=== PATIENT | male | born 1975 | race Caucasian/White ===

== ENCOUNTER 2023-08-17 09:06 | Day surgery (SDC) | payer OTHER, SELFPAY ==
--- NOTE | 2023-08-16 09:52 | P.CONAN_ITS ---
Documented by User: Jeri Jackson NP 08/16/23 10:01 HPI - Anesthesia Eval Consult details Narrative: 47yo M for Colonoscopy Follows [employer] cardiology for VSD and bicuspid aortic valve. Per t/c with patient 08/16/23, no cardiac symptoms. VSD very small, no surgical repair. Aortic valve is working normally without stenosis. No cardiac info provided by surgeon's office. Fax request to [facility] 08/16/23. [facility] Past Medical History Medical History (Updated 08/16/23 @ 06:51 by Freda Klein RN) Hx of ventricular septal defect Hx of bicuspid aortic valve Hx of cataract Hx of thyroid cancer History of hypothyroidism Social History Social History Patient Tobacco Use Status: Never used Tobacco Use of substances other than those prescribed or required for medical reasons: No Are you DNR?: No Advance Directives: No Advance Directives Information Provided: Yes Meds Allergies Allergy/AdvReac Type Severity Reaction Status Date / Time walnut Allergy Severe RASH Verified 08/17/23 09:21 CHOCOLATE Allergy Severe RASH Uncoded 08/17/23 09:21 Home Medications Medication Instructions Recorded Confirmed Last Taken Type calcitriol 0.25 mcg capsule PO 08/13/23 Unknown History levothyroxine 150 mcg tablet 150 mcg PO DAILY 08/13/23 Unknown History naproxen 500 mg tablet 500 mg PO BID 08/13/23 Unknown History sumatriptan succinate 50 mg tablet PO 08/13/23 Unknown History Vit C(ascorb.calcium)(mv-mins) 08/16/23 Unknown History ashwagandha extract 08/16/23 Unknown History cholecalciferol (vitamin D3) 10 08/16/23 Unknown History mcg (400 unit) capsule (Vitamin D3) ginseng 100 mg capsule mg 08/16/23 08/16/23 Unknown History melatonin 1 mg tablet mg 08/16/23 Unknown History Assessment and Plan Assessment Anesthesia Assessment: Chart Reviewed Documented by User: Ej Osei MD 08/17/23 09:51 [facility] Past Medical History Medical History (Updated 08/16/23 @ 06:51 by Freda Klein RN) Hx of ventricular septal defect Hx of bicuspid aortic valve Hx of cataract Hx of thyroid cancer History of hypothyroidism Family History Family history of problems with anesthesia: No Surgical History History of Problems with Anesthesia: No Social History Social History Patient Tobacco Use Status: Never used Tobacco Use of substances other than those prescribed or required for medical reasons: No Are you DNR?: No Advance Directives: No Advance Directives Information Provided: Yes Meds Allergies Allergy/AdvReac Type Severity Reaction Status Date / Time walnut Allergy Severe RASH Verified 08/17/23 09:21 CHOCOLATE Allergy Severe RASH Uncoded 08/17/23 09:21 Home Medications Medication Instructions Recorded Confirmed Last Taken Type calcitriol 0.25 mcg capsule PO 08/13/23 Unknown History levothyroxine 150 mcg tablet 150 mcg PO DAILY 08/13/23 Unknown History naproxen 500 mg tablet 500 mg PO BID 08/13/23 Unknown History sumatriptan succinate 50 mg tablet PO 08/13/23 Unknown History Vit C(ascorb.calcium)(mv-mins) 08/16/23 Unknown History ashwagandha extract 08/16/23 Unknown History cholecalciferol (vitamin D3) 10 08/16/23 Unknown History mcg (400 unit) capsule (Vitamin D3) ginseng 100 mg capsule mg 08/16/23 08/16/23 Unknown History melatonin 1 mg tablet mg 08/16/23 Unknown History Exam Narrative Narrative: h/lo right TMJ sx. Airway Mallampati Class: I TM Dist: >3cm Neck ROM: Full Heart: ok. bicuspid AV. tiny VSD. (no abx proph needed per Dr. Garay.) Lungs: ok Assessment and Plan Assessment Anesthesia Assessment: Anesthesia Plan Discussed Final Anesthetic Review Family History of Problems with Anesthesia: No History of Problems with Anesthesia: No NPO: Yes ASA Class: II Final Preanesthetic Review: No Changes in Pt Med Stat, Meds/Allgs Chart Reviewed, Consent Obtained/Reviewed and Anes Risks/Benef Reviewed Patient Risk: Low Procedure Risk: Low Anesthetic Plan Anesthetic Plan: MAC: and Agree w/ Assess. and Plan Disposition: Standard PACU
[2023-08-17 09:10] VITALS: BMI 21.0
[2023-08-17 09:32] VITALS: BP 110/75; PULSE 71; RESP 16; TEMP 36.3; O2SAT 98
[2023-08-17] MEDS: Lactated Ringers 1,000 ML 100 ML IVCONT (09:33)
--- NOTE | 2023-08-17 09:37 | P.HPSUR_ITS ---
Pre-Procedural Eval Section A Date of Service: 08/17/23 Section B Chief Complaint: Other specified symptoms and signs involving the Details of Present Illness: see H&P no changes Relevant Family History (Specify if Yes): No Relevant Social History: None Present Medications: see Short Stay Collaborative assessment Medical History: No relevant PMH History of Previous Operations: No relevant previous surgery Allergies: Allergies Allergy/AdvReac Type Severity Reaction Status Date / Time walnut Allergy Severe RASH Verified 08/17/23 09:21 CHOCOLATE Allergy Severe RASH Uncoded 08/17/23 09:21 Review of Systems Sugical H&P ROS: Negative: Constitution, Cardiovascular, Respiratory, Neurological, Psychiatric, Hem-Onc, Allergic/Immunologic, Gastrointestinal, Genitourinary, Musculoskeletal, Integumentary, Endocrine and Eyes/Ears/Nose/Thr oat Exam Surgical H&P Exam: Normal: HEENT, Normal: Heart, Normal: Lungs, Normal: Extremities, Normal: Abdomen, Normal: Skin and Normal: Neurological Plan Diagnosis/Plan: Unchanged I have reviewed the history and physical and performed a pertinent physical examination on my patient. No changes have occurred unless specified. Time Spent With Patient Time: Total time managing care of this patient today ____ minutes.
[2023-08-17 10:14] VITALS: BP 102/65; PULSE 72; RESP 18; TEMP 36.1; O2SAT 95
[2023-08-17] MEDS: Acetaminophen 325 MG TABLET 650 MG PO (10:25)
[2023-08-17 10:29] VITALS: BP 113/54; PULSE 65; RESP 16; TEMP 36.1; O2SAT 96
--- NOTE | 2023-08-17 10:33 | OP_ITS ---
DATE OF SERVICE: 08/17/2023 SURGEON: Adam Garay MD INDICATIONS: Change in bowel movements. PREOPERATIVE DIAGNOSIS: POSTOPERATIVE DIAGNOSIS: PROCEDURE PERFORMED: Colonoscopy to the terminal ileum with biopsy. ESTIMATED BLOOD LOSS: COMPLICATIONS: ANESTHESIA: Monitored anesthesia care. ASSISTANTS: SPECIMENS: DESCRIPTION OF PROCEDURE: A history and physical performed, the risks and benefits of the procedure were explained to the patient. Informed consent was obtained. The patient was placed in the left lateral decubitus position. A digital rectal exam was performed and was found to be normal. The Olympus pediatric colonoscope was introduced into the rectum and advanced to the cecum. The cecum was identified by transillumination, palpation, and identification of ileocecal valve. Examination was performed. The scope was removed. He tolerated the procedure well and was returned to recovery in stable condition. FINDINGS: The terminal ileum was examined and appeared normal. Biopsies were obtained from the terminal ileum. The visualized colonic mucosa was normal. The quality of the prep was good. There was no evidence of colitis or pathology involving the rectum, except for moderate-sized internal hemorrhoids, which were seen on retroflexed examination. A single shallow diverticulum was identified in the right colon. No polyps were seen. Biopsies were obtained from the rectosigmoid. IMPRESSION: Normal colonoscopy. RECOMMENDATIONS: 1. Follow up the biopsy results. 2. Colonoscopy for screening purposes recommended in 10 years for average risk individuals. MD NYLA Gilliland/SANJAY / [phone]
== END 2023-08-17 11:14 | disposition home or self-care (01) ==
PROVIDERS: PCP Physician Assistant; Visit Provider Internal Medicine Gastroenterology
PROC: 0DJD8ZZ Inspection of Lower Intestinal Tract, Via Natural or Artificial Opening Endoscopic (ICD-10-PCS; CPT 45378; principal; 2023-08-17 10:50)
DX: R19.4 Change in bowel habit (principal); Z83.79 Family history of other diseases of the digestive system; Z83.719 Family history of colon polyps, unspecified; K57.30 Diverticulosis of large intestine without perforation or abscess without bleeding; K64.8 Other hemorrhoids; R14.0 Abdominal distension (gaseous); Z85.850 Personal history of malignant neoplasm of thyroid; Z87.74 Personal history of (corrected) congenital malformations of heart and circulatory system; Z79.899 Other long term (current) drug therapy
CPT/HCPCS: 45380; 88305; J2704

== ENCOUNTER 2023-10-19 16:22 | Emergency (ER) | payer OTHER, SELFPAY ==
[2023-10-19 16:31] VITALS: BP 150/95; PULSE 64; RESP 18; TEMP 36.4; O2SAT 98; BMI 21.2
--- NOTE | 2023-10-19 16:32 | ED.WOUNDLAC ---
HPI - Wound/Laceration General Chief Complaint: Wound/Laceration Stated Complaint: left index finger/stitches Time Seen by Provider: 10/19/23 17:07 Source: patient Mode of arrival: ambulatory Limitations: no limitations History of Present Illness HPI narrative: Patient is a 48-year-old [id number] male presenting to the emergency department with complaint of laceration to left index finger. States that he accidentally cut himself with a clean kitchen knife at home. Reports that his Tdap is up-to-date within the last 5 years. Denies any numbness or tingling. States that the laceration bled for approximately 1 hour which is what brought him to the emergency department. He has not anticoagulated. Denies any decreased range of motion to finger. Onset (ago): hour(s) Extremity Location: left: hand Place: home Patient tetanus UTD: Yes Context: accidental Associated symptoms: none Treatments prior to arrival: bandage Related Data Home Medications Medication Instructions Recorded Confirmed calcitriol 0.25 mcg capsule PO 08/13/23 levothyroxine 150 mcg tablet 150 mcg PO DAILY 08/13/23 naproxen 500 mg tablet 500 mg PO BID 08/13/23 sumatriptan succinate 50 mg tablet PO 08/13/23 Vit C(ascorb.calcium)(mv-mins) 08/16/23 ashwagandha extract 08/16/23 cholecalciferol (vitamin D3) 10 08/16/23 mcg (400 unit) capsule (Vitamin D3) ginseng 100 mg capsule mg 08/16/23 08/16/23 melatonin 1 mg tablet mg 08/16/23 Previous Rx's Medication Instructions Recorded cephalexin 500 mg capsule 500 mg PO QID 5 days #20 caps 10/19/23 Allergies Allergy/AdvReac Type Severity Reaction Status Date / Time walnut Allergy Severe RASH Verified 10/19/23 16:33 CHOCOLATE Allergy Severe RASH Uncoded 08/17/23 09:21 Review of Systems Review of Systems: As per HPI. Yes all other systems are reviewed and are negative Constitutional: Constitutional: Reports as per HPI [facility] Past Medical History Medical History (Updated 10/19/23 @ 17:15 by Carol Jamison NP) Hx of ventricular septal defect Hx of bicuspid aortic valve Hx of cataract Hx of thyroid cancer History of hypothyroidism Social History Social History Patient Tobacco Use Status: Never used Tobacco Smoked in Last 30 Days: No Use of substances other than those prescribed or required for medical reasons: No Advance Directives: No Advance Directives Information Provided: No Physical Exam Vital Signs: Vital Signs: Last Vital Signs Temp 97.6 F 10/19/23 16:31 Pulse 64 10/19/23 16:31 Resp 18 10/19/23 16:31 BP 150/95 H 10/19/23 16:31 Pulse Ox 98 10/19/23 16:31 O2 Del Method Room Air 10/19/23 16:31 BMI result Body Mass Index 21.2 Vital signs have been reviewed and appear to be correct. Blood pressure elevated. Heart rate normal. Respiratory rate normal. Temperature normal. Oxygen saturation normal. Const: General: cooperative, healthy appearing and no acute distress Orientation/consciousness: oriented to person, oriented to place, oriented to time and patient oriented x3 Limitations: no limitations HEENT: Head: Yes normocephalic and Yes atraumatic Ears: external ears normal General nose exam: Normal external nose present Face and sinus: Yes face symmetric Mouth: oropharynx normal and moist mucous membranes Throat: Yes uvula midline Eyes: Pupils: Equal, round and reactive pupils present Neck: Neck: Yes normal visual inspection and Yes supple Resp: Effort & Inspection: normal respiratory effort and able to speak in complete sentences Auscultation: clear to auscultation bilaterally Cardio: Rate: regular rate Rhythm: regular rhythm Heart sounds: S1 normal heart sound present and S2 normal heart sound present GI: Palpation (GI): Soft to palpation and nontender Auscultation: normoactive bowel sounds : General: Yes no CVA tenderness Back/Spine/Pelvis: Back: no CVA tenderness Skin: General skin exam: elasticity normal and turgor normal Neuro: General: oriented to person, oriented to place, oriented to time, patient oriented x3, moves all extremities, no focal motor deficits and CN's II-XI intact bilaterally Cranial nerves: Yes Equal, round and reactive pupils present Cognition (Neuro): normal cognition Extrem: General: Yes full ROM, Yes no pedal edema and Yes no calf tenderness Left upper extremity: hand Details: normal capillary refill, neuromotor exam normal, neurosensory exam normal, normal ROM of fingers and laceration 2nd digit dorsal aspect proximal Details: linear (5mm, over PIP joint) Hand/finger images: 1. 5mm linear superficial laceration, no active bleeding Psych: Mental Status: mental status grossly normal Affect: normal affect Thought process: Normal thought process present Course Course Course Narrative: This is an RME: Additional HPI, ROS, PE not included below will be deferred to primary provider. This is a 48-year-old male presenting to the emergency department for evaluation of left 2nd finger laceration. He accidentally lacerated his left finger on a clean knife. He has not on blood thinners. Last tetanus within the last 5 years. 2 mm laceration noted to his left 2nd digit. Minimal bleeding. May need suture or skin glue. Plan: Further ER evaluation needed. Medications Administered Discontinued Medications Generic Name Dose Route Start Last Admin Trade Name Freq PRN Reason Stop Dose Admin Lidocaine HCl 5 ml 10/19/23 17:07 10/19/23 17:18 Lidocaine Hcl 1 % Mpf 5 Ml Vial INFILTRATI 10/19/23 17:08 5 ml ONCE ONE Administration Medical Decision Making Medical Decision Making MDM Narrative: Patient is a 48-year-old [id number] male with history of and cardiac valve disease presenting to the emergency department with complaint of laceration to left index finger. On exam patient is awake, A+Ox3, VS WNL, afebrile, normal neurological exam without focal deficits, physical exam findings as above. Given reported symptoms and physical exam findings, initial differential includes laceration, tendon injury. Laceration repaired as per procedure note. Finger placed in splint. Discussed wound care with the patient including keeping hand out of water/outdoor water, and assisting wound daily for signs of infection. Return precautions discussed at bedside. 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 Will send prescription for Keflex. Instructed patient to follow-up with primary care provider. Discussed suture removal. Patient verbalized understanding of and agreement with plan. Differential Diagnosis Differential Diagnoses: The differential diagnosis associated with the presentation includes As per MDM. External Record Review External record reviewed: Inpatient record, Office record and Outpatient record Prescription Management I considered prescription management with: Antibiotic Procedures Laceration Laceration 1: Site: hand Side (If applicable): left Size (cm): 0.5 Description: linear Depth: simple, single layer Local Anesthetic: lidocaine 1% Pre-repair: wound explored, irrigated extensively and deep structures intact Skin layer closed with: other (prolene) Size (cm): 5-0 Number of sutures: 2 Technique: simple, interrupted Discharge Plan Discharge Clinical Impression: Laceration of finger of left hand Patient Disposition: Home, Self-Care Instructions: Care For Your Stitches (DC), Laceration (DC), Splint Care (ED), Finger Laceration (ED), Stitches Removal (ED) Additional Instructions: You have been evaluated in the emergency department today for a laceration to your finger. Your laceration was repaired in the emergency department with sutures. Please keep the area surrounding the laceration clean and dry and keep dressing in place for the next 24 hours. After that please change the dressing and assess the wound daily. You are being treated with prophylactic antibiotics to prevent infection, please complete the full course as prescribed. Keep your hand out of standing water, no washing dishes, swimming, hot tubs, outdoor water. Keep the area out of direct sunlight for the next 6 months to help prevent scarring. You should have the sutures removed in 7-10 days. If you develop fever, redness, swelling at the site of your laceration, or thick yellow drainage please come back to the ER for a wound check. Prescriptions: New cephalexin 500 mg capsule 500 mg PO QID 5 Days Qty: 20 0RF No Action sumatriptan succinate 50 mg tablet PO levothyroxine 150 mcg tablet 150 mcg PO DAILY calcitriol 0.25 mcg capsule PO naproxen 500 mg tablet 500 mg PO BID ginseng 100 mg Capsule cholecalciferol (vitamin D3) [Vitamin D3] 10 mcg (400 unit) Capsule melatonin 1 mg Tablet Vit C(ascorb.calcium)(mv-mins) ashwagandha extract
[2023-10-19] MEDS: Lidocaine HCl 1 % MPF 5 ML VIAL INFILTRATI (17:18)
[2023-10-19 18:08] VITALS: BP 132/79; PULSE 52; RESP 16; O2SAT 98
[2023-10-19 18:29] VITALS: BP 132/79; PULSE 52; RESP 16; TEMP 36.8; O2SAT 98
== END 2023-10-19 18:30 | disposition home or self-care (01) ==
PROVIDERS: Emergency Provider Internal Medicine; PCP Physician Assistant
DX: S61.211A Laceration without foreign body of left index finger without damage to nail, initial encounter (principal); W26.0XXA Contact with knife, initial encounter; Y93.9 Activity, unspecified; Y92.000 Kitchen of unspecified non-institutional (private) residence as the place of occurrence of the external cause; Y99.8 Other external cause status
CPT/HCPCS: 12001; 99284

== ENCOUNTER 2025-02-20 11:14 | Emergency (ER) | payer OTHER, SELFPAY ==
[2025-02-20 11:25] VITALS: BP 136/81; PULSE 68; RESP 16; TEMP 36.6; O2SAT 97; BMI 24.1
--- NOTE | 2025-02-20 11:34 | ED_ITS ---
HPI - General Adult General Chief complaint: Wound/Laceration Stated complaint: spider bite urgent care said to go to [facility] Time Seen by Provider: 02/20/25 11:45 Source: patient, RN notes reviewed and old records reviewed Mode of arrival: ambulatory Limitations: no limitations History of Present Illness ED Provider: Yaquelin HPI narrative: Patient is a 49-year-old papillary thyroid carcinoma status post thyroidectomy presenting to the emergency department with report of insect bite to right posterior thigh. States that he was at a concert in a barn on Wednesday night, was wearing shorts and had to walk through a field full of high grass to get to the venue. Wednesday morning he noted erythematous area to right posterior thigh. Since that time that erythema has begun to spread towards his groin area. Reports history of spider bite in the past. Denies fevers, chills, body aches. Did not visualize any insect biting him or on his skin afterwards. Denies discharge or drainage. 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 MD complaint: thigh lesion Onset (ago): day(s) Related Data Home Medications ?Medication ?Instructions ?Recorded ?Confirmed calcitriol 0.25 mcg capsule PO 08/13/23 levothyroxine 150 mcg tablet 150 mcg PO DAILY 08/13/23 naproxen 500 mg tablet 500 mg PO BID 08/13/23 sumatriptan succinate 50 mg tablet PO 08/13/23 Vit C(ascorb.calcium)(mv-mins) 08/16/23 ashwagandha extract 08/16/23 cholecalciferol (vitamin D3) 10 08/16/23 mcg (400 unit) capsule (Vitamin D3) ginseng 100 mg capsule mg 08/16/23 08/16/23 melatonin 1 mg tablet mg 08/16/23 Previous Rx's ?Medication ?Instructions ?Recorded cephalexin 500 mg capsule 500 mg PO QID 5 days #20 cap s 10/19/23 cephalexin 500 mg capsule 500 mg PO QID #28 caps 02/20 doxycycline hyclate 100 mg capsule 100 mg PO BID #13 c aps 02/20/25 fluconazole 150 mg tablet 150 mg PO Q3D 2 doses #2 tab s 02/20/25 ondansetron 4 mg disintegrating 4 mg PO Q8H PRN nausea and 02/20/25 tablet vomiting #10 tabs Allergies Allergy/AdvReac Type Severity Reaction Status Date / Time walnut Allergy Severe RASH Verified 02/20/25 11:30 CHOCOLATE Allergy Severe RASH Uncoded 08/17/23 09:21 Review of Systems 2 Review of Systems: As per HPI Yes all other systems are reviewed and are negative Constitutional: Constitutional: Reports as per HPI ON LICENSE OF [facility] Past Medical History Medical History (Updated 02/21/25 @ 00:02 by Yonny Sandoval) Hx of ventricular septal defect Hx of bicuspid aortic valve Hx of cataract Hx of thyroid cancer History of hypothyroidism Social History Social History Patient Tobacco Use Status: Never used Tobacco Advance Directives: No Advance Directives Information Provided: No Do you have a plan to hurt others: No Plan Physical Exam ED Vital Signs: Vital Signs - 24 hr 02/20/25 11:25 02/20/25 13:22 Temperature 97.8 F 97.7 F Pulse Rate 68 81 Respiratory Rate 16 16 Blood Pressure 136/81 115/80 Pulse Oximetry 97 99 Oxygen Delivery Method Room Air Room Air BMI result Body Mass Index 24.1 Vital signs have been reviewed and appear to be correct. Blood pressure normal. Heart rate normal. Respiratory rate normal. Temperature normal. Oxygen saturation normal. Const General: cooperative, healthy appearing and no acute distress Orientation/consciousness: oriented to person, oriented to place, oriented to time and patient oriented x3 Limitations: no limitations [facility] Head: Yes normocephalic and Yes atraumatic Ears: external ears normal General nose exam: Normal external nose present Face and sinus: Yes face symmetric Mouth: oropharynx normal and moist mucous membranes Throat: Yes uvula midline Eyes Pupils: Equal, round and reactive pupils present Neck Neck: Yes normal visual inspection and Yes supple Resp Effort & Inspection: normal respiratory effort and able to speak in complete sentences Auscultation: clear to auscultation bilaterally Cardio Rate: regular rate Rhythm: regular rhythm Heart sounds: S1 normal heart sound present and S2 normal heart sound present GI Palpation (GI): Soft to palpation and nontender Auscultation: normoactive bowel sounds General: Yes no CVA tenderness Back/Spine/Pelvis Back: no CVA tenderness Skin General skin exam: elasticity normal and turgor normal Neuro General: oriented to person, oriented to place, oriented to time, patient oriented x3, moves all extremities, no focal motor deficits and CN's II-XI intact bilaterally Cranial nerves: Yes Equal, round and reactive pupils present Cognition (Neuro): normal cognition Extrem Other: General: Yes full ROM, Yes no pedal edema and Yes no calf tenderness Right lower extremity: hip/thigh Details: other (1cm diameter circular erythema with single central opening and surrounding erythema, see photo) Psych Mental Status: mental status grossly normal Affect: normal affect Thought process: Normal thought process present Course Course Course Narrative: RME: 49 yold male presents to the ED for possible spider bite. patient presents to the ED for right groin bite area with redness and opening. patient states bite occurred this past weekend. Patient states last time he had black spder bite he almost . Patient was sent for urgent care for IV antibiotics. Patient prefer to be seen in [facility] ED. positive for right thigh redness, circular area with opening. no black necrosis. Medications Administered Discontinued Medications Generic Name Dose Route Start Last Admin Trade Name Freq PRN Reason Stop Dose Admin Ceftriaxone Sodium 1 gm 02/20/25 12:06 02/20/25 12:25 Ceftriaxone Sodium 1 Gm Vial IVPUSH 02/20/25 12:07 1 gm ONCE ONE Administration Doxycycline Monohydrate 100 mg 02/20/25 12:06 02/20/25 12:25 Doxycycline Monohydrate 100 Mg Capsule PO 02/20/25 12:07 100 mg ONCE ONE Administration Medical Decision Making Medical Decision Making [facility] Narrative: Patient is a 49-year-old papillary thyroid carcinoma status post thyroidectomy presenting to the emergency department with report of insect bite to right posterior thigh. On exam patient is awake, A+Ox3, VS WNL, afebrile, normal neurological exam without focal deficits, physical exam findings as above. Given reported symptoms and physical exam findings, initial differential includes but is not limited to insect bite, folliculitis, tick bite, cellulitis, lymphangitis. Will check basic labs, tick panel and blood cultures. 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 I am comfortable with this plan, as I have cared for both this patient as well as his mother in the past, and he has been reliable. Discussed that he will need to monitor the area closely and return for worsening infection. He is agreeable to this. Labs notable for no significant leukocytosis. Feel he is stable for discharge at this time, will treat with keflex and doxy. Strict return precautions discussed. Patient verbalized understanding of and agreement with plan. Differential Diagnosis Differential Diagnoses: The differential diagnosis associated with the presentation includes as per [facility] Admission/Observation Consideration of admission/observation: Escalation of care including admission/observation considered Patient would have been admitted to the hospital had their clinical presentation warranted hospital admission. Lab Data [facility] Lab Attestation statement: I reviewed the patient's lab results. as per [facility] 02/20/25 12:24 02/20/25 12:23 Labs: Lab Results 02/20/25 02/20/25 Range/Units 12:23 12:24 WBC 6.2 (4.8-10.8) X10*3/uL RBC 4.28 L (4.60-5.80) X10*6/uL Hgb 13.1 L (14.0-18.0) g/dl Hct 37.8 L (42.0-52.0) % MCV 88.3 (80.0-98.0) fL MCH 30.6 (27.0-33.0) pg MCHC 34.7 (31.0-36.0) g/dl RDW 13.1 (11.0-16.0) % Plt Count 186 (160-400) X10*3/uL MPV 11.7 (9.4-12.4) fL Immature Gran % (Auto) 0.3 (0.0-0.4) % Neut % (Auto) 71.6 (45-73) % Lymph % (Auto) 14.6 L (20-40) % [place]ham % (Auto) 11.2 H (2-11) % Eos % (Auto) 1.5 (0-4) % Baso % (Auto) 0.8 (0-2) % Lymph # (Auto) 0.9 L (1.2-4.9) X10*3/uL Oldham # (Auto) 0.7 (0.1-1.2) X10*3/uL Eos # (Auto) 0.1 (0.0-0.4) X10*3/uL Baso # (Auto) 0.1 (0.0-0.2) X10*3/uL Abs Immat Gran (auto) 0.02 (0.00-0.03) X10*3/uL Absolute Neuts (auto) 4.4 (2.0-8.3) x10*3/uL Absolute Nucleated RBC 0.000 (0.0-0.012) X10*3/uL Nucleated RBC % (auto) 0.0 (0.0-0.2) /100WBC Sodium 141 (135-145) mmol/L Potassium 4.3 (3.3-5.1) mmol/L Chloride 106 (96-108) mmol/L Carbon Dioxide 28 (22-29) mmol/L Anion Gap 11 L (12-20) BUN 14 (9-16) mg/dL Creatinine 0.98 (0.5-1.4) mg/dL Estim Creat Clear Calc 88.2 Estimated GFR > 60 Random Glucose 93 (60-115) mg/dL Calcium 8.1 L (8.4-10.2) mg/dL Total Bilirubin 0.3 (0.0-1.0) mg/dL AST 24 (5-37) U/L ALT 15 (0-40) U/L Alkaline Phosphatase 66 (39-117) U/L Total Protein 6.9 (6.5-8.0) g/dL Albumin 4.2 (3.5-5.0) g/dL External Record Review External record reviewed: Inpatient record, Office record and Outpatient record Prescription Management I considered prescription management with: Antibiotic Discharge Plan Discharge Clinical Impression: Cellulitis of right thigh Patient Disposition: Home, Self-Care Instructions: Cellulitis (ED) Additional Instructions: You have been evaluated in the emergency department today for skin infection, also known as cellulitis. It is unclear if your symptoms are due to an insect bite or not, but you have been tested for tick borne illnesses and will be contacted with any positive results. If the area of inflammation was outlined today in the ER, please return to the ER immediately if the area of redness increases beyond the border or if you develop fever, chills, body aches. Please take your prescribed antibiotics as directed for the full course of the medication. You can use Tylenol or ibuprofen per package instructions every 6 hours as needed for pain. If necessary, you can alternate these medications so that you can take one medication every 3 hours. For instance, at noon take ibuprofen, then at 3:00 p.m. take Tylenol, then at 6:00 p.m. take ibuprofen. Please schedule an appointment for follow-up with your primary care physician as soon as possible. Return to the emergency department if you experience recurrent vomiting, fevers greater than 100.4? F, increasing area of redness, warmth around the area, foul-smelling discharge from the area, increased tenderness around the area, or any other concerning symptoms. Prescriptions: New cephalexin 500 mg capsule 500 mg PO QID Qty: 28 0RF doxycycline hyclate 100 mg capsule 100 mg PO BID Qty: 13 0RF ondansetron 4 mg tablet,disintegrating 4 mg PO Q8H PRN (Reason: nausea and vomiting) Qty: 10 0RF fluconazole 150 mg tablet 150 mg PO Q3D Qty: 2 0RF No Action sumatriptan succinate 50 mg tablet PO levothyroxine 150 mcg tablet 150 mcg PO DAILY calcitriol 0.25 mcg capsule PO naproxen 500 mg tablet 500 mg PO BID ginseng 100 mg Capsule cholecalciferol (vitamin D3) [Vitamin D3] 10 mcg (400 unit) Capsule melatonin 1 mg Tablet Vit C(ascorb.calcium)(mv-mins) ashwagandha extract cephalexin 500 mg capsule 500 mg PO QID 5 Days Qty: 20 0RF Interventions: ED Discharge Assessment Last Done: 02/20/25 13:22 Discharge Date/Time: 02/20/25 13:22 Print Language: Surinamese
[2025-02-20 12:35] LABS: MANUAL DIFF FLAG NO
[2025-02-20 12:36] LABS: Hematocrit 37.8 % (42.0-52.0); Hemoglobin 13.1 g/dl (14.0-18.0); Imm Gran Abs Auto 0.02 X10*3/uL (0.00-0.03); Imm Gran Pct Auto 0.3 % (0.0-0.4); Lymphocytes Absolute Auto 0.9 X10*3/uL (1.2-4.9); Mean Corpuscular HGB Conc 34.7 g/dl (31.0-36.0); Mean Corpuscular Hemoglobin 30.6 pg (27.0-33.0); Mean Corpuscular Volume 88.3 fL (80.0-98.0); NRBC Abs Auto 0.000 X10*3/uL (0.0-0.012); NRBC Pct Auto 0.0 /100WBC (0.0-0.2); Platelet Count 186 X10*3/uL (160-400); Red Blood Count 4.28 X10*6/uL (4.60-5.80); White Blood Count 6.2 X10*3/uL (4.8-10.8)
[2025-02-20 12:50] LABS: Alanine Aminotransferase 15 U/L (0-40); Albumin Level 4.2 g/dL (3.5-5.0); Alkaline Phosphatase 66 U/L (39-117); Anion Gap 11 (12-20); Aspartate Amino Transferase 24 U/L (5-37); Blood Urea Nitrogen 14 mg/dL (9-16); Calcium 8.1 mg/dL (8.4-10.2); Carbon Dioxide 28 mmol/L (22-29); Chloride 106 mmol/L (96-108); Creatinine Clr Calc Pharmacy 88.2; Estimated Glomerular Filt Rate > 60; Potassium 4.3 mmol/L (3.3-5.1); Sodium 141 mmol/L (135-145); Total Protein 6.9 g/dL (6.5-8.0)
[2025-02-20 13:22] VITALS: BP 115/80; PULSE 81; RESP 16; TEMP 36.5; O2SAT 99
--- OUTSIDE RECORDS SUMMARY | 2025-02-20 14:00 | XMS_ITS | Clinical Summary ---
Author Organization [address] Address [address] [place] [phone] Phone Care Team Providers Care Dam Attendant Name Role Phone Carroll Suarez MD Primary Care Provider Allergies Active Allergy Reactions Criticality Noted Date Comments Chocolate 12/11/2013 Nut - Unspecified 12/11/2013 Walnuts Other Itching 07/20/2017 Tobacco [nicotiana Tabacum] Medications calcitrioL (ROCALTROL) 0.25 mcg capsule Take 1 capsule (0.25 mcg total) by mouth 2 (two) times a day. 10/22/2022 Active cyclobenzaprine (FLEXERIL) 5 mg tablet Take 1 tablet (5 mg total) by mouth 3 (three) times a day if needed for muscle spasms. 12/11/2022 Active gabapentin (NEURONTIN) 100 mg capsule Take 1 capsule (100 mg total) by mouth 3 (three) times a day. 01/11/2024 Active levothyroxine (SYNTHROID, LEVOTHROID) 150 mcg tablet Take 1 tablet (150 mcg total) by mouth 1 (one) time each day. 09/01/2022 Active SUMAtriptan (IMITREX) 50 mg tablet Take 1 Tablet by mouth as needed for Migraine. 12/11/2022 Active valACYclovir (VALTREX) 1 gram tablet Take 1 Tablet by mouth 3 times daily. 01/11/2024 Active Active Problems Problem Noted Date Diagnosed Date Mitral regurgitation 05/04/2022 Overview (07/24/2024): ECHO 04/02/2022 EF 60-65% Thyroid cancer (CMS/HCC V24, CMS/HCC V28) 02/09/ 2021 Overview (07/24/2024): Multifocal PTC with clinical N1 , s/p total thyroidectomy with cenral LN dissection 10/09/2019 at [facility] [id number] Post op calcemia seeing Dr. 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 Hypoparathyroidism ([facility] V24) 02/13/2020 Multiple thyroid nodules 10/12/2019 Overview (07/24/2024): Partial thyroidectomy Aortic stenosis, mild 01/23/2015 Overview (07/24/2024): 12/2014 HCCA Dysplastic nevus 07/28/2014 Overview (07/24/2024): Dysplastic nevus 06/15 left shoulder (mild atypia) Incidental lung nodule 12/12/2013 Overview (07/24/2024): 3mm subpleural in right middle lobe, seen on abd ct at [place] 05/01/2013 - non- smoker VSD (ventricular septal defect) 12/11/2013 Overview (07/24/2024): Need dental SBE ppx Sees Dr. More Encounters Date Type Department Care Team Description 02/20/2025 Telephone [facility] [address] [place] [phone] Chidi Haas MD 01/09/2025 2:34 PM EDT - 01/09/2025 11:59 PM EDT Hospital Encounter Xray - [facility] [address] [place] [phone] Discharge Disposition: Home or Self Care 01/09/2025 2:33 PM EDT - 01/09/2025 11:59 PM EDT Hospital Encounter Xray - [facility] [address] [place] [phone] Discharge Disposition: Home or Self Care 01/09/2025 2:00 PM EDT Office Visit [facility] [address] [phone] Chidi Haas MD Rib pain on right side (Primary Dx); Acute pain of left shoulder; AC separation, left, initial encounter 01/09/2025 Telephone Adult Medicine [address] [phone] Carroll Suarez MD Fall; Shoulder Injury; Shoulder Pain; Rib Injury from Last 3 Months Immunizations Name Administration Dates Next Due Influenza Quadravalent, MDCK , 0.5ml, with preservative (Flucelvax) 6mo and older 07/20/2017 Influenza, Unspecified 05/18/2020 Tdap Tetanus diptheria acell ular pertussis (Boostrix; Adacel) 7yo and older 02/13/2014 Surgical History Surgery Date Site/Laterality Comments ELBOW SURGERY PROCEDURE: HISTORICAL ELBOW SURGERY; COMMENT: skateboarding accident , right HERNIA REPAIR PROCEDURE: REPAIR INGUINAL HERNIA; COMMENT: B/L as child Medical History Medical History Date Comments VSD (ventricular septal defect) 12/11/2013 DX:VSD (ventricular septal defect); COMMENT: Need dental SBE ppx Sees Dr. More Aortic stenosis, mild 01/23/2015 DX:Aortic stenosis, mild; COMMENT: 12/2014 HCCA Mitral regurgitation 05/04/2022 DX:Mitral r egurgitation; COMMENT: ECHO 04/02/2022 EF 60-65% Family History Medical History Relation Name Comments Other: Crohns Disease Aunt Heart attack Father Other: Colitis Father Parkinson's Disease Father Uterine cancer Mother Relation Name Status Comments Aunt Father lung problems, Mother Alive skin cancer on face, lung problems Social History Tobacco Use Types Packs/Day Years Used Date Smoking Tobacco: Never Smokeless Tobacco: Never Tobacco Cessation:Counseling Given: Not Answered Alcohol Use Standard Drinks/Week Comments No 0 (1 standard drink = 0.6 oz pur e alcohol) Sex and Gender Information Value Date Recorded Sex Assigned at Not on file Legal Sex Male 7:28 PM EST Gender Identity Not on file Sexual Orientation Not on file Obstetrics History Last Filed Vital Signs Vital Sign Reading Time Taken Comments Blood Pressure 122/60 01/09/2025 2:07 PM EDT Pulse 56 01/09/2025 2:07 PM EDT Temperature 36.7 C (98 F) 01/09/2025 2:07 PM EDT Respiratory Rate - - Oxygen Saturation 98% 01/09/2025 2:07 PM EDT Inhaled Oxygen Concentration - - Weight 70.8 kg (156 lb) 07/07/2023 10:51 AM EST Height 182.9 cm (6') 07/07/2023 10:51 AM EST Body Mass Index 21.16 07/07/2023 10:51 AM EST Plan of Treatment Health Maintenance Due Date Last Done Comments Hepatitis B Vaccines (1 of 3 - 19+ 3-dose series) 1994 Pneumococcal Vaccine: Pediatrics (0 to 5 Years) and At-Risk Patients (6 to 49 Years) (1 of 2 - PCV) 1994 Colorectal Cancer Screening: Colonoscopy 07/04/2022 Social Influencers of Health Screening 07/04/2022 DTaP,Tdap,and Td Vaccines (2 - Td or Tdap) 02/14/2024 02/13/2014 COVID-19 Vaccine (2023-2 5 season) 2024 06/07/2021, 10/04/2020, 09/13/2020 Depression Screening 08/02/2024 Influenza Vaccine (#1) 2025 , 07/20/2017 Cholesterol Screening (Lipid Panel) 10/29/2027 10/28/2022 HIV Screening Completed 08/16/2019 Hepatitis C Screening Completed 08/16/2019 HIB Vaccines Aged Out No longer eligi ble based on patient's age to complete this topic HPV Vaccines Aged Out No longer eligi ble based on patient's age to complete this topic Hepatitis A Vaccines Aged Out No long er eligible based on patient's age to complete this topic IPV Vaccines Aged Out No longer eligi ble based on patient's age to complete this topic MMR Vaccines Aged Out No longer eligi ble based on patient's age to complete this topic Meningococcal ACWY Vaccine Aged Out N o longer eligible based on patient's age to complete this topic Meningococcal B Vaccine Aged Out No l onger eligible based on patient's age to complete this topic RSV Immunization Patients Under 20 months Aged Out No longer eligible b ased on patient's age to complete this topic Varicella Vaccines Aged Out No longer eligible based on patient's age to complete this topic Procedures Procedure Name Priority Date/Time Associated Diagnosis Comments XR RIBS W CHEST 3+ VIEWS RIGHT STAT 01/09/2025 2:50 PM EDT Rib pain on right side XR SHOULDER 2+ VIEWS LEFT STAT 01/09/2025 2:49 PM EDT Acute pain of left shoulder LIPID PANEL Routine 10/28/2022 HEPATITIS C SCREENING Routine 08/16/2019 HIV SCREENING Routine 08/16/2019 from Last 3 Months or Most Recently Relevant to Health Maintenance Results * XR Ribs w Chest 3+ Views Right (01/09/2025 2:50 PM EDT) Anatomical Region Laterality Modality Body Right Radiographic Celina ging 01/09/2025 2:57 PM EDT Narrative 01/09/2025 2:58 PM EDT PA view of the chest. Right RIBS, 3 views. History pain. There is no visible displaced right ribs fractures. There is no pneumothorax, pleural effusions or focal consolidations. Heart is normal in size. CONCLUSIONS: Unremarkable examination. -------- FINAL REPORT -------- Dictated By: Sonam Milligan Dictated Date: 01/09/2025 14:57 ET Assigned Physician: Sonam Milligan Reviewed and Electronically Signed By: Sonam Milligan Signed Date: 01/09/2025 14:58 ET Workstation ID: [id number] Transcribed By: Self Edit Transcribed Date: 01/09/2025 14:57 ET Procedure Note Sonam Milligan MD - 01/09/2025 PA view of the chest. Right RIBS, 3 views. History pain. There is no visible displaced right ribs fractures. There is nopneumothorax, pleural effusions or focal consolidations. Heart is normalin size. CONCLUSIONS: Unremarkable examination. -------- FINAL REPORT -------- Dictated By: Sonam Milligan Dictated Date: 01/09/2025 14:57 ET Assigned Physician: Sonam Milligan Reviewed and Electronically Signed By: Sonam Milligan Signed Date: 01/09/2025 14:58 ET Workstation ID: [id number] Transcribed By: Self Edit Transcribed Date: 01/09/2025 14:57 ET Chidi Haas MD IMG XR PROCEDURES Final Result * XR Shoulder 2+ Views Left (01/09/2025 2:49 PM EDT) Anatomical Region Laterality Modality Upper Extremities, Shoulder Left Radi ographic Imaging 01/09/2025 2:58 PM EDT Narrative 01/09/2025 2:58 PM EDT Left shoulder, 4 views. History acute pain. There are minimal degenerative changes in the AC joint. There is no evidence of fractures, dislocations or abnormal soft tissue calcifications. CONCLUSIONS: Minimal degenerative changes in the AC joint. -------- FINAL REPORT -------- Dictated By: Sonam Milligan Dictated Date: 01/09/2025 14:58 ET Assigned Physician: Sonam Milligan Reviewed and Electronically Signed By: Sonam Milligan Signed Date: 01/09/2025 14:58 ET Workstation ID: [id number] Transcribed By: Self Edit Transcribed Date: 01/09/2025 14:58 ET Procedure Note Sonam Milligan MD - 01/09/2025 Left shoulder, 4 views. History acute pain. There are minimal degenerative changes in the AC joint. There is noevidence of fractures, dislocations or abnormal soft tissuecalcifications. CONCLUSIONS: Minimal degenerative changes in the AC joint. -------- FINAL REPORT -------- Dictated By: Sonam Milligan Dictated Date: 01/09/2025 14:58 ET Assigned Physician: Sonam Milligan Reviewed and Electronically Signed By: Sonam Milligan Signed Date: 01/09/2025 14:58 ET Workstation ID: [id number] Transcribed By: Self Edit Transcribed Date: 01/09/2025 14:58 ET Result [facility] Chidi Haas MD IMG XR PROCEDURES Final Result * (ABNORMAL) Lipid panel (10/28/2022) LDL/HDL Ratio 4 0 - 4 Triglycerides 136 0 - 150 mg/dL Cholesterol 177 0 - 200 mg/dL HDL 49 >=40 mg/dL LDL Cholesterol 101(A) 0 - 100 mg/dL Blood Venous blood specimen / Unknown Result [facility] Historical Provider LAB BLOOD ORDERABLES Samia l Result * HIV Screening (08/16/2019) HIV Screening abstracted Result [facility] Historical Provider HEALTH MAINTENANCE Final Result * Hepatitis C Screening (08/16/2019) Hepatitis C Screening abstracted Historical Provider HEALTH MAINTENANCE Final Result from Last 3 Months or Most Recently Relevant to Health Maintenance Insurance [address] [place] [address] [place] [id number] Care Teams Dam Attendant Relationship Specialty Start Date End Date Carroll Suarez MD [address] [place] [id number] PCP - General 08/26/22
--- OUTSIDE RECORDS SUMMARY | 2025-02-20 14:00 | XMS_ITS | Clinical Summary ---
Author Organization [facility] Address [address] [place] [id number] Phone Care Team Providers Care Special Duty Nurse Name Role Phone Carroll Suarez MD Primary Care Provider Allergies Active Allergy Reactions Criticality Noted Date Comments Cephalexin 06/21/2023 Other reaction(s): canker sores, Cold sores Chocolate Other (See Comments) 04/28/2022 Oxycodone-Acetaminophe n 06/21/2023 Other reaction(s): flush, anxiety [employer] 04/28/2022 Medications calcitriol (ROCALTROL) 0.25 MCG capsule Take 0.25 mcg by mouth 2 (two) times a day. 04/22/2022 Active levothyroxine (SYNTHROID, LEVOTHROID) 150 MCG tablet Take 150 mcg by mouth every morning. Active calcium citrate (CALCITRATE) 950 mg (200 mg elemental) tablet Take 1 tablet by mouth daily. 750 am, 500 pm Active Active Problems Problem Noted Date Diagnosed Date Bicuspid aortic valve 04/28/2022 Assessment & Plan (08/15/2024 11:08 AM EST): As mentioned we will check his echo once a year which I have ordered for him mean gradient is only 11 mmHg Assessment & Plan (06/21/2023 10:12 AM EST): Recent echo showing no progression of disease he does have a bicuspid valve. We will repeat it in a year and follow-up with him thereafter Assessment & Plan (04/28/2022 12:17 PM EDT): No evidence of significant aortic stenosis or regurgitation ascending aortic root size is normal we will check an echo once a year Membranous ventricular septal defect 04/28/2022 Assessment & Plan (08/15/2024 11:08 AM EST): This will never need to be treated with surgery Assessment & Plan (06/21/2023 10:12 AM EST): This is present but no clinical effects from it Assessment & Plan (04/28/2022 12:17 PM EDT): This is also chronic and unchanged from prior echocardiogram was done in our [place] location Hypoparathyroidism 04/28/2022 Assessment & Plan (08/15/2024 11:08 AM EST): He still is saying that he has thyroid cancer a small amount and would like to get this removed Assessment & Plan (06/21/2023 10:13 AM EST): Stable at this time Assessment & Plan (04/28/2022 12:17 PM EDT): He was just operated on for thyroid cancer but damage to the parathyroids was done so he needs to take calcium supplementation. ECG done today shows normal sinus rhythm at 68 bpm and is normal. Social History Tobacco Use Types Packs/Day Years Used Date Smoking Tobacco: Never Smokeless Tobacco: Never Education Answer Date Recorded Are you interested in more education? Not on edwin e 11/28/2022 Are you concerned about learning? Not on file 11/28/2022 No 11/28/2022 No 11/28/2022 Digital Access Answer Date Recorded No 12/27/2022 No 12/27/2022 Reliable internet access at home? Not on file 12/27/2022 Device with a working camera? Not on file Sex and Gender Information Value Date Recorded Sex Assigned at Not on file Legal Sex Male 2:35 PM EDT Gender Identity Not on file Sexual Orientation Not on file Last Filed Vital Signs Vital Sign Reading Time Taken Comments Blood Pressure 128/76 08/15/2024 10:41 AM EST Pulse 60 08/15/2024 10:41 AM EST Temperature - - Respiratory Rate - - Oxygen Saturation 97% 08/15/2024 10:41 AM EST Inhaled Oxygen Concentration - - Weight 70.8 kg (156 lb) 08/15/2024 10:41 AM EST at home today Height 182.9 cm (6') 08/15/2024 10:41 AM EST Body Mass Index 21.16 08/15/2024 10:41 AM EST Plan of Treatment Upcoming Encounters Date Type Department Care Team (Late st Contact Info) Description 08/15/2024 Procedure Pass Echo Lab [address] [place] [address] 08/07/2025 10:15 AM EST Appointment Echo Lab [address] [place] [address] Darren More, [address] [place] [id number] 08/13/2025 10:15 AM EST Office Visit [facility] [address] [place] [address] [address] Floor, [address] [place] [address] Darren More DO [address] [place] [address] [place] [id number] Health Maintenance Due Date Last Done Comments Adult Td,Tdap Booster 1975 LIPID PANEL 1975 DEPRESSION SCREENING 1987 HEPATITIS C SCREENING 1993 HIV ONE-TIME SCREENING (18-6 5 YEARS) 1993 COLOGUARD 2020 COLONOSCOPY 2020 COLORECTAL CANCER SCREENING 2020 FIT TEST 2020 FOBT 2020 SIGMOIDOSCOPY 2020 VIRTUAL COLONOSCOPY 2020 TSH LEVEL 08/16/2021 08/16/2020 COVID-19 VACCINE ( - 2023-2 5 season) 2024 SMOKING STATUS SCREENING (On ce After 26 Yrs) Completed 08/15/2024 HEPATITIS A VACCINES Aged Out No long er eligible based on patient's age to complete this topic HIB VACCINES Aged Out No longer eligi ble based on patient's age to complete this topic MENINGOCOCCAL VACCINES (ACWY) Aged Out No longer eligible based on patient's age to complete this topic MENINGOCOCCAL VACCINES (B) Aged Out N o longer eligible based on patient's age to complete this topic PNEUMOCOCCAL VACCINES (0-49 years) Aged Out No longer eligible based on patient's age to complete this topic Medical Devices Not on file Insurance [employer] [place] [address] [place] [address] [employer] [place] [address] [place] [address] [employer] [place] [address] [place] [address] [employer] [place] [address] [place] [address] [place], [place] [address] Care Teams Special Duty Nurse Relationship Specialty Start Date End Date Carroll Suarez MD PCP - General Internal Medicine 06/21/23 Additional Source Comments The information contained in this document represents components of the legal health record. It is not the complete legal health record.[facility]
--- OUTSIDE RECORDS SUMMARY | 2025-02-20 14:00 | XMS_ITS | Patient Health Record ---
Author Organization [facility] Address [address] [place] [address] Care Team Providers Care Conference Translator Name Role Phone Carroll Suarez M.D. Primary Care Provider Vitor Garay Jr Adam Unavailable Allergies Allergen (clinical drug ingredient) Drug/Non Drug Allergy documented on EMR Reaction Allergy Type Onset Date Status Chocolate Flavor Unknown Drug Allergy Active walnut (uncoded) Unknown Allergy Act evonne Reason For Referral No Information Medications Medication SIG (Take, Route, Frequency, Duration) Notes Start Date End Date Status Melatonin 3 MG 1 tablet at bedtime as needed Orally Once a day for 30 day(s) as needed Active Ashwagandha 500 MG as directed Orally Active Calcium Citrate 760 MG/3.5GM as directed Orally Active Calcitriol 0.25 MCG Oral for 90 x 2 Active Levothyroxine Sodium 150 MCG TAKE ONE TABLET BY MOUTH EVERY DAY Oral for 90 Active Vitamin C Adult Gummies 125 MG as directed Orally Active Ginseng Complex/[place] Jelly Active Saw Garrison 500 MG as directed Orally Active MiraLax (colon prep) 17 GM/SCOOP mixed with Gatorade or Crystal Light Orally begin at 5:00 p.m. the day before the procedure for 1 day 07/05/2023 Active Vitamin B + C Complex - as directed Orally Active Vitamin D-3 25 MCG (1000 UT) 1 capsule Orally Once a day for 30 day(s) every other day Active Immunizations Vaccine Route Administration Date Status Comme nts Influenza Unknown 07/05/2023 Refused Social History Tobacco Use: Social History Observation Description Date Details (start date - stop date) Never Smoker NA - NA Tobacco Use/Smoking Question Answer Notes Patient is a nonsmoker Alcohol Screen Question Answer Notes Did you have a drink containing alcohol in the p ast year? No Points 0 Interpretation Negative Problems Problem Type SNOMED Code ICD Code Onset Dates Problem Status W/U Status Risk Notes Problem [id number] Change in bowel movement (R19.8) Active confirmed Plan Of Treatment Future Test Test Name Order Date COLONOSCOPY 07/05/2023 Insurance Providers Payer Name Payer Address Payer Phone Subscriber Number Group Number Insured Name Patient Relationship to Insured Coverage Start Date Coverage End Date [facility] [address] [address] [place], [place] [phone] [id number] ADA JAUREGUI Self - patient is the insured Medical (General) History Medical History History ICD Code thyroid cancer Left eye cataract Bicuspid aortic valve, VSD Surgical History Surgery Date(Month/Year) thyroid surgery 10/2019-04/22
[2025-02-22 00:54] LABS: A. Phagocytphilium DNA,RT-PCR NOT DETECTED (NOT DETECTED); Babesia Microti DNA, RT-PCR NOT DETECTED (NOT DETECTED); Borrelia Miyamotoi,DNA RT-PCR NOT DETECTED (NOT DETECTED); E.Chaffeensis DNA RT-PCR NOT DETECTED (NOT DETECTED); Lyme(Borrelia ssp)DNA RT-PCR NOT DETECTED (NOT DETECTED)
== END 2025-02-20 13:22 | disposition home or self-care (01) ==
LOC: HO.ED 12:58
PROVIDERS: Registered Nurse Emergency; Emergency Provider Emergency Medicine; PCP Internal Medicine
DX: L03.115 Cellulitis of right lower limb (principal); M79.651 Pain in right thigh
CPT/HCPCS: 36415; 80053; 85025; 87040; 87468; 87469; 87478; 87484; 87798; 96374; 99282; 99284; J0696